=== PATIENT | female | born 1975 | race Caucasian/White ===

== ENCOUNTER 2019-12-20 22:01 | Emergency (ER) | payer BC ==
[~2019-12-20] VITALS: Ht 180.3 cm; Wt 133.8 kg
[2019-12-20 22:08] VITALS: BP_SYST 117
--- NOTE | 2019-12-20 22:14 | NUR ---
Pt sitting up in gurney, verbalizing needs well. alert and oriented. c/o falling and posterior scalp lacerated. Bleeding controlled.
--- NOTE | 2019-12-20 22:15 | NUR ---
ER Dr. Minor at bedside examining patient.
[2019-12-20] MEDS ORDERED: BACITRACIN 1 GM OINT TP ONE (22:30)
[2019-12-20] MEDS ORDERED: LIDOCAINE/EPI 1% 1:100000 20 ML VIAL INJ ONE (22:30)
[2019-12-20] MEDS ORDERED: LIDOCAINE 4% TOPICAL 50 ML BOTTLE MM ONE (22:30)
[2019-12-20] MEDS ORDERED: fentaNYL CITRATE/PF 100 MCG/2 ML AMP IVP ONE (23:45)
[2019-12-21] MEDS ORDERED: BACITRACIN 1 GM OINT TP ONE (00:06)
--- NOTE | 2019-12-21 00:32 | NUR ---
Patient given written and verbal discharge instructions and verbalizes understanding. ER MD Minor discussed with patient the results and treatment provided. Patient in stable condition. ID arm band removed. IV catheter removed intact and dressing applied, no active bleeding. Patient educated on pain management and to follow up with PMD. Pain Scale 0/10. Opportunity for questions provided and answered. Medication side effect fact sheet provided.
[2019-12-21 00:33] VITALS: BP_SYST 132
== END 2019-12-21 00:32 | disposition home or self-care (01) ==
LOC: SED 22:01
DX: S01.01XA Laceration without foreign body of scalp, initial encounter (principal); I10 Essential (primary) hypertension; F41.9 Anxiety disorder, unspecified; K21.9 Gastro-esophageal reflux disease without esophagitis; E78.5 Hyperlipidemia, unspecified; Z90.49 Acquired absence of other specified parts of digestive tract; Z90.710 Acquired absence of both cervix and uterus; Z88.0 Allergy status to penicillin; Z79.899 Other long term (current) drug therapy; W01.198A Fall on same level from slipping, tripping and stumbling with subsequent striking against other object, initial encounter; Y93.89 Activity, other specified; Y92.89 Other specified places as the place of occurrence of the external cause; Y99.8 Other external cause status
CPT/HCPCS: 70450; 93005; 96374; 99284; J3010